=== PATIENT | male | born 1945 | race Caucasian/White ===

== ENCOUNTER 2025-01-22 10:22 | Emergency (ER) | payer MEDICARE, OTHER, SELFPAY ==
[2025-01-22 10:24] VITALS: BP 170/102
[2025-01-22] MEDS: TORADOL 15 MG IV (11:25)
[2025-01-22] MEDS: VALIUM INJECTION 5 MG IV (11:25)
[2025-01-22] MEDS: LIDOCAINE 4% PATCH 1 PATCH TOPICAL (11:26)
[2025-01-22 11:31] VITALS: BP 182/82
[2025-01-22 11:35] LABS: Hematocrit 31.8 % (39.0-52.0); Hemoglobin 10.7 g/dL (13.0-18.0); Mean Corp Hgb Conc. 33.6 g/dL (33.0-37.0); Mean Corpuscular Volume 93.8 fL (80.0-94.0); Nucleated Red Blood Cells % 0 % (-); Platelet Count 198 10^3/uL (130-400); Red Cell Dist. Width 13.6 % (11.5-14.5)
[2025-01-22 11:52] LABS: ALT (SGPT) 15 U/L (0-50); AST (SGOT) 22 U/L (17-59); Albumin 4.8 g/dl (3.5-5.0); Alkaline Phosphatase 72 U/L (38-126); Blood Urea Nitrogen 30 mg/dl (9-20); Calcium 9.3 mg/dl (8.4-10.2); Carbon Dioxide 23 mmol/L (22-30); Chloride 103 mmol/L (98-107); Glucose 256 mg/dl (70-99); Potassium 5.2 mmol/L (3.5-5.1); Sodium 135 mmol/L (135-145); Total Protein 7.4 g/dl (6.3-8.2); eGFR > 60.00
[2025-01-22 12:00] VITALS: BP 150/73
--- NOTE | 2025-01-22 12:34 | ED.GENMED ---
History of Present Illness
General
Chief Complaint: Musculo-Skeletal Complaint
Source: patient
Exam Limitations: none
Time Seen by Provider: 01/22/25 10:47
Nursing documentation reviewed up to this point in time: agreed with
History of Present Illness
History of Present Illness:
see MDM
Past History
Past History
ED Past Medical History: HTN, Hypercholesterolemia and NIDDM
Social History
Tobacco: Former smoker
Review of Systems
Review of Systems
Allergies reviewed?: Yes
All Other Systems: Not applicable
Phy Exam
Physical Exam
Physical Exam:
GENERAL: Alert , in no apparent distress
EYE: pupils equal and reactive
NECK: Patient's neck is held in a degree of flexion, he has very limited extension and rotation with more pain with rotating to the right,
ENT: o/p clr, mmm. No ptosis of the eyelids no trouble swallowing
CARDIAC: Regular rate and rhythm .
LUNGS: Clear breath sounds bilaterally, no acute respiratory distress, no wheezes/rales/rhonchi
ABDOMEN: Soft, without focal tenderness, no r/g, no cvat, normal bowel sounds
NEUROLOGICAL: Alert and oriented, no focal neuro deficits upper and lower extremity strength intact, 2+ brachial reflexes, sensation intact
SKIN: Warm and dry, skin intact.
MUSCULOSKELETAL: No edema, well perfused. neg adeel's sign
PSYCH: Normal and appropriate interaction.
Course
Orders/Labs/Results
Orders:
Orders
01/22/25 11:20
Ketorolac [Toradol] 15 mg IV NOW STA
Lidocaine [Lidocaine 4% Patch] 1 patch TOPICAL NOW STA
Apply Lidocaine patch(s) to:: neck
diazePAM [Valium Injection] 5 mg IV NOW STA
01/22/25 11:21
Complete Blood Count/With Diff Urgent
Comprehensive Metabolic Panel Urgent
Abnormal Lab Results
01/22/25
11:21
RBC 3.39 L 10^6/uL
(4.70-6.10)
Hgb 10.7 L g/dL
(13.0-18.0)
Hct 31.8 L %
(39.0-52.0)
MCH 31.6 H pg
(27.0-31.0)
MPV 10.5 H fL
(7.4-10.4)
Absolute Lymphs (auto) 0.7 L 10^3/uL
(1.2-3.4)
Absolute Monos (auto) 1.0 H 10^3/uL
(0.1-0.6)
Neutrophils % 77.3 H %
(42.2-75.2)
Lymphocytes % 9.0 L %
(20.5-51.1)
Monocytes % 12.0 H %
(1.7-9.3)
Potassium 5.2 H mmol/L
(3.5-5.1)
BUN 30 H mg/dl
(9-20)
Glucose 256 H mg/dl
(70-99)
01/22/25 11:21
01/22/25 11:21
Vital Signs
Initial and Last Documented VS:
Initial Vital Signs
Temp Pulse Resp BP Pulse Ox
36.9 C 104 16 170/102 100
01/22/25 10:01/22/25 10:01/22/25 10:01/22/25 10:01/22/25 10:24
Last Documented Vital Signs
Temp Pulse Resp BP Pulse Ox
36.9 C 104 16 170/102 100
01/22/25 10:24 01/22/25 10:01/22/25 10:24 01/22/25 10:01/22/25 10:24
MDM/Problems Addressed
Differential Diagnosis Includes:
see MDM
MDM/Problems Addressed:
Note:
CHIEF COMPLAINT(S)
Neck stiffness and severe pain, difficulty moving the head.
HISTORY OF PRESENT ILLNESS
The patient is a 79-year-old male who presented with neck stiffness and severe pain that began on Friday. Initially, the symptoms were mild enough to play golf on without significant discomfort, but by Friday, the pain
had worsened significantly. He currently reports difficulty lifting his head and experiences a popping sensation when turning side to side. The pain is accompanied by a severe headache that began night, and he has had difficulty sleeping
due to discomfort. The patient also reports substantial pain, rating it as an eight on a scale from zero to ten when still, and worsening to nine or more with movement. The pain reportedly stays localized in the neck and head without radiating down
the arms. He had a similar episode four years ago, which resolved after a shot was administered. He has tried taking 500 mg aspirin, which provided some relief. The patient reports dizziness while walking yesterday.
PAST MEDICAL AND SURIGICAL HISTORY
The patient has a history of diabetes and hypertension. He also takes a statin.
SOCIAL DETERMINANTS AFFECTING HEALTH
The patient was accompanied by a family member who will provide transportation home post-treatment.
MEDICATIONS
The patient takes aspirin 500 mg for arthritis, as well as medications for diabetes and hypertension, and a statin.
REVIEW OF SYSTEMS
- Neurological: Reports of severe headaches and dizziness, no vision changes, no hearing loss or ringing in the ears.
- Musculoskeletal: Severe neck stiffness and pain, difficulty moving neck.
- General: Difficulty sleeping due to discomfort.
PHYSICAL EXAM
- Musculoskeletal: Notable stiffness and limited range of motion in the neck.
- Neurological: No numbness, weakness, or tingling in the arms, face, or legs.
Nursing notes reviewed and vital signs reviewed.
PROBLEM LIST
- Acute severe neck pain and stiffness
- Severe headache
- Dizziness
CHRONIC MEDICAL CONDITIONS SIGNIFICANTLY AFFECTING CARE
- Diabetes
- Hypertension
PLAN
The plan includes administering an intravenous non-steroidal anti-inflammatory medication (Toradol) and a muscle relaxer (Valium) to alleviate symptoms. Blood work will be conducted for screening purposes. The patient may require cervical spine
imaging if symptoms do not improve with medication.
DIFFERENTIAL DIAGNOSIS
The Differential Diagnosis includes, in no particular order and is not limited to:
1. Cervical muscle strain or spasm
2. Cervical spondylosis
3. Cervical radiculopathy
4. Tension headache
5. Polymyalgia rheumatica
6. Cervical disc herniation
7. Degenerative disc disease
8. Neck arthritis
9. Vertebrobasilar insufficiency
10. Giant cell arteritis
Disposition:
SUMMARY OF ENCOUNTER
The patient, a 79-year-old male with a history of hypertension, hyperlipidemia, and type 2 diabetes, presented with severe neck pain and stiffness that developed gradually over four days. He was initially able to play golf but experienced a
significant worsening of symptoms, including very limited range of motion due to a pinching pain, particularly with extension or rotation to the right. The examination revealed a normal neurological assessment but demonstrated limited and painful
range of motion and mild tenderness in the right trapezius and paraspinal muscles, indicating muscle spasm. Initial treatment in the emergency department included muscle relaxants and ketorolac, leading to significant symptom improvement. The
patient expressed comfort with going home and declined further imaging.
ASSESSMENT
The patient presents with acute severe neck pain and stiffness, likely due to muscle spasm.
EMERGENCY TREATMENTS ADMINISTERED
Administered ketorolac (Toradol) 30 mg IV and prescribed diazepam (Valium) 5 mg TID as needed.
PLAN
The patient is advised to continue ibuprofen 2 to 3 times a day and acetaminophen (Tylenol) as needed for pain relief. Follow-up with primary care is encouraged.
INDEPENDENT REVIEW OF LABS AND INTERPRETATION OF TESTS
My independent review of screening labs is unremarkable.
PATIENT EDUCATION AND COUNSELING
The patient was informed about the musculoskeletal nature of his neck pain and was advised on the appropriate use of prescribed medications. He was encouraged to monitor his blood pressure at home considering the slight hypertension noted.
FOLLOW-UP INSTRUCTIONS
Follow-up with primary care physician for continued care and further evaluation if symptoms persist or worsen.
MEDICATION RECONCILIATION
Valium (diazepam) 5 mg TID as needed, ibuprofen 2 to 3 times a day, and acetaminophen (Tylenol) as needed.
MEDICAL DECISION MAKING
-Complexity of Data Reviewed: Chronic conditions affecting care include hypertension, hyperlipidemia, and type 2 diabetes. Differential Diagnoses considered were cervical muscle strain or spasm, cervical spondylosis, cervical radiculopathy, tension
headache, polymyalgia rheumatica, cervical disc herniation, degenerative disc disease, neck arthritis, vertebrobasilar insufficiency, and giant cell arteritis.
-Data:
Category 1: Screening labs were reviewed and noted as unremarkable.
Category 2: Considered a CT scan due to age but opted for conservative management with medication.
Category 3: Discussion of management plan with patient and consideration of the patients preference to decline imaging.
-Risk: Consideration of Admission/Observation: Escalation of care including admission/observation was considered given the complexity and risk of the patients presenting complaint, exam findings, and their underlying comorbidities. However,
ultimately I feel the patient is safe for outpatient management with close follow-up. Reasoning: Work-up reassuring, does not reveal any acute life/organ threatening processes, patients symptoms well controlled upon reevaluation, reexamination is
reassuring, vitals are stable, patient agreeable with discharge, reliable for follow-up.
DIAGNOSIS
Cervical muscle spasm (M62.838).
*Pulse Oximetry
SaO2: 100
Oxygen Mode of Delivery: Room air
ED Attending Note
-
Portions of this chart may have been created with voice recognition software.� Occasional wrong word or��sound alike� substitutions may have occurred due to the inherent limitations of voice recognition software.
Discharge Plan
Departure
Referrals:
Constance García MD [Family Provider, Internal Medicine]
Interventions
Interventions:
*Risk Screen - Suicide Last Done: 01/22/25 10:29
*General Assessment Last Done: 01/22/25 10:24
*Neglect/Abuse Screening Last Done: 01/22/25 10:24
*ED- Fall Risk Assessment Last Done: 01/22/25 11:22
*ED COVID-19 Vaccine History Last Done: 01/22/25 11:22
ED-Musculoskeletal Assessment Last Done: 01/22/25 11:22
Discharge Date and Time
Print Language: [id number]
== END 2025-01-22 13:06 | disposition home or self-care (01) ==
LOC: EMR 10:22
PROVIDERS: Physician Assistant; EMERGENCY PHYSICIAN Student in an Organized Health Care Education/Training Program; FAMILY PHYSICIAN Internal Medicine Geriatric Medicine
DX: M62.838 Other muscle spasm (principal); M54.2 Cervicalgia; E11.9 Type 2 diabetes mellitus without complications; I10 Essential (primary) hypertension; E78.00 Pure hypercholesterolemia, unspecified; Z87.891 Personal history of nicotine dependence; Z79.899 Other long term (current) drug therapy
CPT/HCPCS: 96374; 96375; 99284; 80053; 85025